=== PATIENT | female | born 1950 | race Caucasian/White ===

== ENCOUNTER 2021-10-15 15:49 | Emergency (ER) | payer MEDICARE, BC, SELFPAY ==
[2021-10-15 15:57] VITALS: BP 120/70; PULSE 63; RESP 18; TEMP 36; O2SAT 100; BMI 19.7
[2021-10-15 16:00] VITALS: BMI 19.7
--- NOTE | 2021-10-15 16:15 | ED_ITS ---
HPI - General Adult General Time Seen by Provider: 16:15 Date Seen: 10/15/21 Chief complaint: Laceration/Wound Stated complaint: Right finger lac Time Seen by Provider: 10/15/21 15:50 History of Present Illness HPI narrative: Faith is a 71-year-old [id number] female who presents to the ED with daughter after a finger laceration. Patient states she was trimming bushes with a pull saw with her daughter, the saw came down and cut her right index finger, bleeding has been controlled. Patient is not on any blood thinners. Patient has been able to move her finger. She is unclear if she is updated on her tetanus status. She denies any numbness tingling to the finger at this time. Patient had been doing well prior to the accident. Related Data Home Medications Medication Instructions Recorded Confirmed duloxetine 30 mg capsule,delayed 30 mg PO DAILY 10/15/21 10/15/21 release (Cymbalta) Allergies Allergy/AdvReac Type Severity Reaction Status Date / Time levofloxacin [From Levaquin] Allergy Verified 10/15/21 15:57 Review of Systems Status of ROS: Reports: 10 or more systems reviewed and unremarkable except as noted in History and below [facility] Medical History No significant past medical history Surgical History Previous back surgery Social History Smoking Status: Former smoker How often do you have a drink containing alcohol: monthly or less AUDIT-C Alcohol total score: 1 Non-prescribed substance use: denies use Exam Narrative: Exam Narrative: General: No obvious distress lying comfortably HEENT: Pupils equal round reactive to light, extraocular muscles intact Lungs: Clear to auscultation bilaterally Heart: Normal sinus rhythm S1-S2 Abdomen: Soft nontender Muscle skeletal: Right hand index finger: just proximal to the PIP on the dorsal side, there is a 6 cm oblique laceration, there is exposure of the tendon, patient can actively flex and extend the PIP and DIP joint. minimal bleeding, no FB's. Const: Vital Signs, click to edit/add: Vital Signs - 24 hr 10/15/21 15:57 Temperature 96.8 F L Pulse Rate [Pulse Oximeter] 63 Respiratory Rate 18 Blood Pressure [Ri ght Upper Arm] 120/70 Pulse Oximetry 100 Oxygen Delivery Me thod Room Air Course Course Hospital Course: 4:00 PM: AIDET performed, workup will include laceration repair please see procedure note. Will get a better look at the extensor tendon once local anesthetic and area is extensively washed in soap and water. Does not seem to be any tendon injury on intial exam. Make sure patient is up-to-date on her tetanus status. Reevaluation(s) Reevaluation #1: Laceration repair complete, splint applied in neutral position for support, extensor tendon intact, she will be covered with Keflex 500 mg t.i.d. over the next 7 days, she should follow up with her primary care provider in [place] in 7-10 days, return if worsening symptoms. Time: 17:03 Vital Signs Vital signs: Initial Vital Signs Temperature 96.8 F L 10/15/21 15:57 Temperature Source Temporal Artery Scan 10/15/21 15:57 Pulse Rate 63 10/15/21 15:57 Pulse Rhythm 10/15/21 15:57 Respiratory Rate 18 10/15/21 15:57 Blood Pressure 120/70 10/15/21 15:57 Blood Pressure Mean 86 10/15/21 15:57 Pulse Oximetry 100 10/15/21 15:57 Oxygen Delivery Method 10/15/21 15:57 Vital Signs Temperature 96.8 F L 10/15/21 15:57 Pulse Rate 63 10/15/21 15:57 Respiratory Rate 18 10/15/21 15:57 Blood Pressure 120/70 10/15/21 15:57 Pulse Oximetry 100 10/15/21 15:57 Oxygen Delivery Method 10/15/21 15:57 Temperature 96.8 F L 10/15/21 15:57 Pulse Rate 63 10/15/21 15:57 Respiratory Rate 18 10/15/21 15:57 Blood Pressure 120/70 10/15/21 15:57 Pulse Oximetry 100 10/15/21 15:57 Oxygen Delivery Method 10/15/21 15:57 Discharge Plan Discharge Clinical Impression: Laceration of right index finger Patient Disposition: Home, Self-Care Condition: Improved Instructions: Laceration (ED) Additional Instructions: To continue to wear the splint for support until follow up appointment in 7-10 days for suture removal. Keflex 500 mg 3 times daily over the next 7 days. Return if worsening pain, drainage or swelling to the area. Activity Level: Activity as Tolerated Prescriptions: No Action duloxetine [Cymbalta] 30 mg capsule,delayed release(DR/EC) 30 mg PO DAILY Stand Alone Forms: [employer] Info Instructions
[2021-10-15] MEDS: TETANUS/DIPHTH/PERTUSSIS 0.5 ML SYRINGE IM (16:58)
--- NOTE | 2021-10-15 17:15 | ED.NURSE ---
bacitracin and bandaid to R 2nd digit, splint placed on finger
== END 2021-10-15 17:18 | disposition home or self-care (01) ==
LOC: ED 17:08
PROVIDERS: Emergency Provider Student in an Organized Health Care Education/Training Program
DX: S61.210A Laceration without foreign body of right index finger without damage to nail, initial encounter (principal); W31.2XXA Contact with powered woodworking and forming machines, initial encounter
CPT/HCPCS: 12002; 90471; 90715; 99283; 99284